=== PATIENT | male | born 1995 | race Caucasian/White ===

== ENCOUNTER 2018-11-13 07:28 | Day surgery (SDC) | payer OTHER ==
[~2018-11-13 07:28] MED LIST: CEFAZOLIN 2 GM/D5W RTU 2 GM/50 ML RTUPB IV PRN
[2018-11-13] MEDS ORDERED: LIDOCAINE 0.5% INJ-PF (5 MG/ML) 50 ML SDV SUBCUT PRN (08:00)
[2018-11-13] MEDS ORDERED: LACTATED RINGERS 1000 ML IV PRN (08:00)
[2018-11-13] MEDS ORDERED: MINERAL OIL (STERILE) 10 ML VIAL ONE (08:18)
[2018-11-13] MEDS ORDERED: BALANCED SALT IRRIG SOLN COMB2 15 ML BOTTLE ONE (08:19)
[2018-11-13] MEDS ORDERED: BUPIVACAINE HCL 0.5%/EPI 1:200000 INJ 1.8 ML CARTRIDGE ONE (08:19)
[2018-11-13] MEDS ORDERED: TOBRAMYCIN SULFATE/DEXAMETH OPH OINTMENT 3.5 GM ONE (08:19)
[2018-11-13] MEDS ORDERED: OXYMETAZOLINE HCL 0.05% NASAL SPRAY 15 ML BOTTLE ONE ×2 (08:19→09:29)
[2018-11-13] MEDS: BUPIVACAINE HCL 0.25% /EPINEPHRINE INJ/PF 30 ML SDV ONE ×2 (08:24→09:24)
[2018-11-13] MEDS ORDERED: DEXAMETHASONE SOD PHOS INJ 10 MG/1 ML VIAL ONE (08:42)
[2018-11-13] MEDS ORDERED: MIDAZOLAM 2 MG/2 ML INJ ONE (08:42)
[2018-11-13] MEDS ORDERED: FENTANYL CITRATE INJ/PF 250 MCG/5 ML AMPULE ONE (08:42)
[2018-11-13] MEDS ORDERED: ONDANSETRON HCL INJ/PF 4 MG/2 ML SDV ONE (08:42)
[2018-11-13] MEDS ORDERED: NEOSTIGMINE METHYLSULFATE 10 MG/10 ML VIAL ONE (08:42)
[2018-11-13] MEDS ORDERED: SUCCINYLCHOLINE CHLORIDE INJ 200 MG/10 ML VIAL ONE (08:43)
[2018-11-13] MEDS ORDERED: PROPOFOL INJ 200 MG/20 ML VIAL IV ONE (08:43)
[2018-11-13] MEDS ORDERED: GLYCOPYRROLATE INJ 0.4 MG/2 ML VIAL ONE (08:43)
[2018-11-13] MEDS ORDERED: ROCURONIUM BROMIDE INJ 50 MG/5 ML VIAL IV ONE (08:43)
[2018-11-13] MEDS ORDERED: SCOPOLAMINE HYDROBROMIDE 1.5 MG PATCH.TD72 TD PRN (08:44)
[2018-11-13] MEDS ORDERED: BACITRACIN ZINC OINTMENT 15 GM ONE (12:49)
[2018-11-13] MEDS ORDERED: OXYCODONE-ACETAMINOPHEN 5-325 MG TABLET ONE (13:56)
--- NOTE | 2018-11-20 10:53 | [facility]ARE OPERATIVE REPORT E ---
[facility]urgf [facility] Operative Report NAME: MANDA PUENTE AGE: 23Y DATE OF SURGERY: 11/13/2018 ROOM: PREOPERATIVE DIAGNOSES: 1. Nasal septal deviation, acquired. 2. Nasal deformities, acquired. 3. Chronic nasal dyspnea. 4. Bilateral inferior turbinate hypertrophy. 5. History of repeated nasal trauma. POSTOPERATIVE DIAGNOSES: 1. Nasal septal deviation, acquired. 2. Nasal deformities, acquired. 3. Chronic nasal dyspnea. 4. Bilateral inferior turbinate hypertrophy. 5. History of repeated nasal trauma. OPERATION PERFORMED: 1. Endonasal/closed septorhinoplasty addressing the bony nasal pyramid. 2. Bilateral inferior turbinate reduction using a submucous resection technique. SURGEON: AYDEE MCCONNELL D.O. ANESTHESIA STAFF: ANABEL Cheung ANESTHESIA: General endotracheal tube. ESTIMATED BLOOD LOSS: 150 mL. FLUIDS: 1700 mL. COMPLICATIONS: None. DRAINS: None. SPONGE COUNT: Verified. MATERIALS FORWARDED SPECIMEN: None. FINDINGS: 1. Obpqtpbw-[id number] left external nasal deviation involving bone and cartilage. 2. Left nasal septal deviation involving bone and cartilage, and there was a large maxillary crest spur/septal spur. 3. There was trapped mucosa on the right aspect of the nasal septum in the area of the mucosal flap and the septal cartilage and maxillary crest. 4. Right caudal septal cartilage bone deformity with convexity to the left and concavity to the right. 5. Bilateral inferior turbinate hypertrophy. INDICATIONS: This is a 23-year-old white male, active duty [employer], patient who was seen and evaluated in the [facility] office. The patient had been referred for, and he complained of a longstanding history of nasal dyspnea over the years. The patient has had repeat nasal trauma with resulting nasal deformities. The patient denies history of acute or chronic sinus disease/sinusitis. The patient has desired over the years to undergo corrective nasal surgeries to improve his functional nasal airflow. After extensive discussion with the patient, recommendation and plan was made for a functional endonasal/closed septorhinoplasty and bilateral inferior turbinate reduction surgery. The procedures and all of their risks and complications were all discussed with the patient. He voiced an understanding of the described surgical plan, agreed to proceed, and consent was obtained. PROCEDURE: The patient was taken to the main operating room and was placed on the operating room table in the supine position. Appropriate monitors were placed. Using mask and IV access, general anesthesia was induced. The patient was then transorally intubated without difficulty. The patient was then positioned and prepped for nasal surgery. He underwent a nasal examination with injection of local anesthetic with epinephrine to establish a nasal block. Two Afrin-soaked neuro patties were then placed per nasal passage. The patient was then prepped and draped in the usual fashion for nasal surgery. The Afrin-soaked neuro patties were removed and the patient underwent a hemitransfixion incision with elevation of the mucoperichondrial and mucoperiosteal flaps without difficulty. Care was taken to dissect around the maxillary crest spur/septal spur. The bony cartilaginous junction was identified and divided with removal of the most deviated portions of septal cartilage and bone. The maxillary crest spur/septal spur was removed with a V-chisel without difficulty. There was a greater than 1.5 x 1.5 cm cartilaginous L-strut that was preserved. At this point the turbinate bipolar wand was used to make 2 passes in each inferior turbinate. The anterior portion of each inferior turbinate was next entered with a pair of Edmundo scissors followed by elevation of tissue in a submucosal plane with a Orlando elevator and Obion elevator. Next, a turbinate microdebrider system at a setting of 1500 rpm was used to perform submucous resection on each side. Next, a Patience elevator was used to outfracture each inferior turbinate. Excessive/redundant mucosa was trimmed and the margins were reapproximated with chromic suture on each side. At this point the rhinoplasty portion of the case was addressed in the following manner: There was access gained just superior to the takeoff of each inferior turbinate and there was dissection carried out in a submucosal plane for the lateral osteotomies. Next, there was a right marginal incision and a left intercartilaginous incision used to gain access to the nasal dorsum with dissection also carried out in a subperiosteal plane. At this point dorsal rasp work was performed. Once complete, medial, lateral, and central osteotomies were performed. A #11 blade scalpel was used over the area of the radix for the central osteotomies to be performed. The bony nasal pyramid was mobilized into the midline. Once complete a caudal septal graft was fashioned out of the cartilage that had been harvested. The right side of the caudal septum was scored with a #15 blade scalpel to release the memory out of the concave side of the deformity. Next, the graft was placed along the right caudal septum and secured in place with Prolene suture. Once complete, the caudal septum with graft was affixed in the midline at the anterior nasal spine with clear nylon suture. At this point the nose was thoroughly irrigated and suctioned with adequate hemostasis being noted. All incisions were reapproximated with chromic suture. Remaining cartilage has been placed back between the mucosal flaps to be banked. At this point there were modified Garcia splints and Merocel splints placed into the nose, and these were all secured at the caudal aspect with Prolene suture. The patient's nose was then cleaned and dried followed by placement of Mastisol, Steri-Strips, and a Charlotte aluminum pressure splint. The patient was then returned to the anesthesia staff and was allowed to emerge from general anesthesia. The patient was extubated in the main operating room and was then transported to the postanesthesia recovery unit in stable condition. There were no complications. DICTATING PHYSICIAN: AYDEE MCCONNELL D.O. [id number] PHY#: [id number] ID: [id number] JOB#: [id number] ACCT: [id number] cc:AYDEE MCCONNELL D.O. >
== END 2018-11-13 15:09 | disposition home or self-care (01) ==
LOC: SC 07:28
PROVIDERS: ATTEND Otolaryngology
DX: M95.0 Acquired deformity of nose (principal); J34.2 Deviated nasal septum; J34.3 Hypertrophy of nasal turbinates; R06.09 Other forms of dyspnea; M26.609 Unspecified temporomandibular joint disorder, unspecified side
CPT/HCPCS: 30140; 30420; J2250; J3490 ×6; J3010; J0330; J2405; J2704; J1100; J0690; 160

== ENCOUNTER → 2018-12-27 | Outpatient (CLI) | payer OTHER | LOC: OD 09:55 | PROVIDERS: ATTEND Otolaryngology | DX: R09.81 Nasal congestion (principal) | CPT/HCPCS: 36415; 82785; 86003 ==